=== PATIENT | male | born 1930 | race Caucasian/White ===

== ENCOUNTER 2016-11-07 17:54 | Inpatient (IN) | payer MEDICARE, BC ==
--- NOTE | ~2016-11-07 | CN ---
Consultation Report [facility] [address] [place]. [address] NAME: BETTINA CARTER : 31 STATUS : ADM IN PAT#: [id number] AGE: 86 ADM/REG DATE : 11/07/16 MR#: [id number] REPORT SERV DATE: 11/08/16 DICTATED BY: BRITTNI BARKER DATE: 11/07/16 REPORT STATUS : Draft TRANSCRIBED BY: MODL DATE: 11/07/16 NEPHROLOGY CONSULT DATE OF CONSULTATION: 11/07/2016 Thank you for this consult. Chart reviewed. Patient examined. REASON FOR CONSULTATION: Acute kidney injury status post cardiac catheterization. HISTORY OF PRESENT ILLNESS: Mr. Btetina Carter is an 86-year-old male, who just moved to the [facility] for [place]. He is someone who has not received any healthcare or had any blood work done for many many years. He does not take any medicines other than occasional Aleve at home for aches and pains. He has noticed for the past 3 weeks that he has had progressive shortness of breath with very minimal exertion. He has had increasing chest pain. Denies any nausea, vomiting, or diaphoresis. He denies any significant edema since he has been making urine fine. He has no knowledge of kidney failure but states he had nephrolithiasis when he was a young man and required some surgeries for that. The shortness of breath and chest pain kept getting worse and so he sought medical attention. He was found to have elevated troponin and was taken to the cardiac wood [facility] lab[facility], where he had diffuse coronary disease and needed CABG and also had a ventricular septal defect that will need a surgical repair. He, on his blood work, was found to have a creatinine of 3.9, a BUN of 124. Nephrology was asked to see him urgently tonight. He is awake, alert, and currently feels well and has no new complaints. PAST MEDICAL HISTORY: 1. No health care, and no blood work for many years. He just moved to the [facility] for [place]. 2. Nephrolithiasis as a young gentleman and was told that he had a small right kidney. 3. Previous surgeries for nephrolithiasis. 4. Occasional NSAIDs in the form of Aleve. ALLERGIES: NO KNOWN DRUG ALLERGIES. MEDICATIONS: None prescribed. SOCIAL HISTORY: He previously smoked. He drinks 1 glass of red wine each day. He previously was employed at the [employer]. FAMILY HISTORY: Mom of COPD. Dad of coronary disease. REVIEW OF SYSTEMS: All systems reviewed and are negative except what is mentioned in the history of present illness. PHYSICAL EXAMINATION: Consultation Report [facility] [address] [place]. [address] NAME: BETTINA CARTER : 31 STATUS : ADM IN PAT#: [id number] AGE: 86 ADM/REG DATE : 11/07/16 MR#: [id number] REPORT SERV DATE: 11/08/16 DICTATED BY: BRITTNI BARKER DATE: 11/07/16 REPORT STATUS : Draft TRANSCRIBED BY: MODTan DATE: 11/07/16 VITAL SIGNS: Blood pressure 114/58. He is afebrile. Pulse 94, respirations 24. GENERAL: He is chronically ill, in no acute distress. EYES: Pupils react bilaterally. No conjunctivitis. OROPHARYNX: Mucous membranes are moist. He has decent dentition. No lesions. NECK: Supple. No thyromegaly or mass. Trachea is midline. LYMPHADENOPATHY: No cervical, supraclavicular, or axillary lymphadenopathy. LUNGS: Decreased breath sounds at the bases. No tachypnea. CARDIOVASCULAR: Regular rate and rhythm with a 2/6 systolic ejection murmur. No rub. No significant edema. GASTROINTESTINAL: Positive bowel sounds. Soft, nontender, nondistended with no hepatosplenomegaly. SKIN: Decent skin turgor. No rash. PSYCHIATRIC: Alert and oriented x3. Speech is clear. Affect is normal. NEUROLOGICAL: Cranial II through XII intact. DIAGNOSTIC DATA: Chest x-ray reviewed by me shows bilateral pulmonary congestion, right side greater than left per my interpretation. EKG shows normal sinus rhythm with acute ST elevation in inferior leads consistent with acute FL per my interpretation. LABORATORY DATA: Sodium 133, potassium 3.7, chloride 96, bicarb 22, BUN 124, creatinine 3.9, glucose 120, calcium 8.3, total protein 6.9, albumin 2.6, direct bilirubin 0.2, indirect bilirubin 0.4. Alkaline phosphatase 223, ALT 355, AST 109, CPK 78. Troponin 4.1. TSH 1.9, free T4 of 1.5. Beta natriuretic peptide 1902. White count 12, hemoglobin 13, hematocrit 37, platelets 308. IMPRESSION: 1. Acute kidney injury in the setting of acute myocardial infarction, status post emergent cardiac catheterization. He was found to have diffuse coronary disease in need of CABG. He was also found to have a ventricular septal defect in need of surgical repair. 2. Pulmonary edema on chest x-ray. 3. No health care or lab work for many years. Just moved here for [place]. 4. Likely end-stage renal disease. He agrees to PermCath and hemodialysis. 5. NSAID use. PLAN AND RECOMMENDATION: 1. Check urinalysis and renal ultrasound. 2. KVO IV fluids. 3. Start IV Lasix. 4. Ask vascular surgery to place PermCath and will need hemodialysis. 5. Avoid NSAIDs. 6. No emergent need for hemodialysis tonight. All questions answered for the patient. He understands that he will likely need dialysis to live, and he wants everything done to help him live. Consultation Report [address] [place]. [address] NAME: BETTINA CARTER : 31 STATUS : ADM IN PAT#: [id number] AGE: 86 ADM/REG DATE : 11/07/16 MR#: [id number] REPORT SERV DATE: 11/08/16 DICTATED BY: BRITTNI BARKER DATE: 11/07/16 REPORT STATUS : Draft TRANSCRIBED BY: ALECIA DATE: 11/07/16 CLIFFORD/ALECIA Brittni Barker M.D. / [id number] CC: Rufino Stallings MD
--- NOTE | ~2016-11-07 | HP ---
History And Physical [facility] [id number] [facility] [place]. [address] NAME: BETTINA CARTER : 32 STATUS : ADM IN [facility]#: [id number] AGE: 86 ADM/REG DATE : 11/07/16 MR#: [id number] REPORT SERV DATE: 11/07/16 DICTATED BY: ALBA STALLINGS DATE: 11/07/16 REPORT STATUS : Draft TRANSCRIBED BY: MODL DATE: 11/07/16 DATE OF ADMISSION: 11/07/2016 CARDIOLOGY ADMISSION HISTORY AND PHYSICAL IDENTIFYING DATA: The patient is an 86-year-old man who has not seen a doctor in approximately 30 years, but who has no known history of cardiovascular disease. CHIEF COMPLAINT: Two-week history of chest pain with progressive generalized fatigue and dyspnea. HISTORY OF PRESENT ILLNESS: Mr. Carter is an 86-year-old man who denies any previous cardiovascular history or medical history with the exception of kidney stones. The patient was apparently in his usual state of health until approximately two weeks prior to admission. The patient did have the abrupt onset of a substernal chest tightness and burning associated with wheezing and dyspnea. The patient attributed his symptoms to seasonal allergies from recent high pollen counts. He did not immediately seek medical evaluation. Throughout the last two weeks, the patient has developed progressive generalized fatigue and exertional dyspnea. He has had waxing and waning chest pain. He reports that today, his fatigue, dyspnea, and chest pain became unremitting. He therefore presented to [facility]. A 12-lead ECG was suggestive of an involving inferior myocardial infarction, and the patient was transferred to [facility] for emergency cardiac catheterization with primary percutaneous coronary intervention as appropriate. PAST MEDICAL HISTORY: Significant for nephrolithiasis. Again, the patient has not seen a doctor in about 30 years. He denies any previous history of chronic kidney disease, diabetes, or hypertension. PAST SURGICAL HISTORY: The patient denies any major previous surgeries. FAMILY HISTORY: The patient denies a significant family history of early coronary heart disease or sudden cardiac . SOCIAL HISTORY: The patient reports that he has a distant history of cigarette smoking, but quit almost 50 years ago. He drinks one to two glasses of wine with dinner daily. He is . He denies any history of illicit drug use. ALLERGIES: THE PATIENT REPORTS NO KNOWN MEDICATION ALLERGIES. HOME MEDICATIONS: The patient reports he is on no doctor-prescribed medications. REVIEW OF SYSTEMS: An abbreviated 12-system review was performed. This is noncontributory except for the pertinent positives and negatives noted in the history of present illness above. History And Physical [address] [place]. [address] NAME: BETTINA CARTER : 32 STATUS : ADM IN PAT#: [id number] AGE: 86 ADM/REG DATE : 11/07/16 MR#: [id number] REPORT SERV DATE: 11/07/16 DICTATED BY: ALBA STALLINGS DATE: 11/07/16 REPORT STATUS : Draft TRANSCRIBED BY: ALECIA DATE: 11/07/16 PHYSICAL EXAMINATION: VITAL SIGNS: The patient is afebrile. Blood pressure is 101/55 mmHg, heart rate is approximately 85 beats per minute and regular, respirations 16, and oxygen saturation is 98% on a 2 L nasal cannula. CONSTITUTIONAL: The patient is an elderly white man who appears fatigued, but is in no acute distress. The patient appears younger than his stated age. EYES: PERRL, EOMI, clear conjunctiva. HEAD/MNT: NCAT with moist mucous membranes and grossly normal hard and soft palate. NECK: Supple with no obvious thyromegaly or lymphadenopathy CARDIOVASCULAR: There is a regular rhythm with a normal S1 and a physiologically split second heart sound. There is a grade 3/6 holosystolic murmur heard at the cardiac apex, but also throughout the precordium. This does not clearly radiate to the axilla. The jugular venous pressure is difficult to estimate, as the patient is lying flat on the catheterization table at the time of my examination. PULMONARY: Again, pulmonary exam is limited by patient position. However, the lungs are grossly clear to auscultation bilaterally with no wheezing, rales, rhonchi, or dullness to percussion noted at this time. ABDOMINAL: Soft, nontender, nondistended with no gross organomegaly noted. EXTREMITIES: No clubbing, cyanosis, or edema. The patient has a non-palpable right common femoral artery pulse. He has a 2+ left common femoral artery pulse. MUSCULOSKELETAL: Grossly normal strength and range of motion in all extremities INTEGUMENTARY: Skin appears intact with no bruises, wounds or active lesions noted NEURO/PSYC: Alert and oriented x3, with no dysarthria, facial droop or lateralizing weakness noted. 12-LEAD EKG: The 12-lead EKG shows sinus rhythm with first-degree AV block. There is [address]-segment elevation noted in leads II, III, and aVF. There is [address]-segment depression noted in lead V3. Frequent premature ventricular complexes are noted. There are Q-waves seen in leads II, III, and aVF. Overall, the findings are consistent with an evolving inferior myocardial infarction. LABORATORY: Partial labs from an outside hospital show mild leukocytosis, mild anemia, and renal function studies consistent with acute renal failure with a creatinine of 3.8 and a BUN of 141. CARDIAC CATHETERIZATION: Please see official report for details. In summary, the patient was found to have severe multivessel coronary artery disease. Left ventriculography was performed to evaluate the source of the patient's murmur. The patient has late filling of the pulmonary artery as well as what appears to be the right ventricular margin. The findings are suggestive of an ischemic ventricular septal defect. 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 ASSESSMENT AND PLAN: 1. Evolving inferior myocardial infarction with apparent ischemic ventricular septal defect: A stat transthoracic echocardiogram will be obtained to more accurately History And Physical [address] [address] NAME: BETTINA CARTER : 32 STATUS : ADM IN [facility]#: [id number] AGE: 86 ADM/REG DATE : 11/07/16 MR#: [id number] REPORT SERV DATE: 11/07/16 DICTATED BY: ALBA STALLINGS DATE: 11/07/16 REPORT STATUS : Draft TRANSCRIBED BY: MODL DATE: 11/07/16 characterize the nature of the patient's ventricular septal defect. I have discussed the case with Dr. Moo Torres. The patient remained hemodynamically stable at this time. If possible, surgery will be delayed so that repair of the patient's ischemic ventricular septal defect as well as multivessel coronary artery bypass surgery can be planned. At this time, the patient denies chest pain. He will continue aspirin. The patient will not be loaded with Plavix given the possibility of urgent surgery. 2. Acute renal failure: Repeat labs will be ordered to confirm acute renal failure. The Nephrology Service has been consulted. Should the patient require dialysis, CRRT may be necessary, as the patient is at high risk of becoming hemodynamically unstable on traditional hemodialysis. I have discussed the findings and the patient's relatively poor prognosis with his . The family has been updated. The patient will be transferred to the Cardiovascular Surgery ICU for close monitoring. JCH/MODL Alba Stallings MD / [id number] CC: Alba Stallings MD
[~2016-11-07 17:54] MED LIST: ALEVE220 MG PO; [UNRECOGNIZED DRUG - OTHER] PO
[2016-11-07 21:16] LABS: BASOPHILS 0.4 %; BASOPHILS ABSOLUTE 0.05 10/3/uL (0.0-0.16); EOSINOPHILS ABSOLUTE 0.12 10/3/uL (0.0-0.53); HEMATOCRIT 37.6 % (40.0-51.0); HEMOGLOBIN 13.1 g/dL (13.6-17.8); IMMATURE GRANULOCYTES 1.9 %; IMMATURE GRANULOCYTES ABSOLUTE 0.24 10/3/uL (0.0-0.11); LYMPHOCYTES 12.4 %; LYMPHOCYTES ABSOLUTE 1.55 10/3/uL (0.67-4.30); MANUAL DIFF NO %; MEAN CORPUS HGB CONC 34.8 g/dL (32.0-36.0); MEAN CORPUSCULAR VOLUME 91.7 fL (80-100); MONOCYTES 8.6 %; MONOCYTES ABSOLUTE 1.08 10/3/uL (0.21-1.20); NEUTROPHILS 75.7 %; NEUTROPHILS ABSOLUTE 9.48 10/3/uL (2.02-8.40); PLATELET COUNT 308 10/3/uL (150-400); RBC DISTRIBUTION WIDTH 13.9 % (12.0-16.0); WHITE BLOOD CELLS 12.5 10/3/uL (4.5-10.5)
[2016-11-07 21:37] LABS: A/G RATIO 0.6 (0.7-1.9); ALBUMIN 2.6 G/DL (3.5-5.0); ALKALINE PHOSPHATASE 223 U/L (45-117); BUN (BLOOD UREA NITROGEN) 124 MG/DL (6-23); CALCIUM, SERUM 8.3 MG/DL (8.5-10.4); CHLORIDE, SERUM 96 MMOL/L (96-112); CK-MB 7.2 NG/ML; CKMB INDEX (NOT ORD) 9.2; CO2 (CARBON DIOXIDE) 22 MMOL/L (24-34); CPK 78 U/L (0-200); CREATININE 3.92 MG/DL (0.70-1.30); DIRECT BILIRUBIN 0.2 MG/DL (0.0-0.4); FREE T4 1.51 NG/DL (0.76-1.46); GFR AFRICAN AMERICAN 15 ML/MIN (>=60); GFR NON AFRICAN AMERICAN 13 ML/MIN (>=60); GLOBULIN 4.3 G/DL (2.5-4.1); GLUCOSE, SERUM 120 MG/DL (60-99); INDIRECT BILIRUBIN(NOT ORDER) 0.4 MG/DL (0.1-0.9); POTASSIUM, SERUM 3.7 MMOL/L (3.5-5.3); SGOT(AST) 109 U/L (5-40); SGPT(ALT) 355 U/L (5-65); SODIUM, SERUM 133 MMOL/L (135-148); TOTAL BILIRUBIN 0.6 MG/DL (0-1.2); TOTAL PROTEIN 6.9 G/DL (6.0-8.5)
[2016-11-07 21:38] LABS: TROPONIN I 4.13 NG/ML (<0.05)
[2016-11-08 03:16] LABS: ASCORBIC ACID (UR NOT ORDER) NEG (NEG); BILIRUBIN, URINE NEGATIVE (NEG); KETONE, URINE NEGATIVE (NEG); LEUKOCYTE ESTERASE(NOT OR LARGE (NEG); WBC (NOT ORDERED) (RFLEX) > 182 (0-5)
[2016-11-08 04:04] LABS: BASOPHILS 0.4 %; BASOPHILS ABSOLUTE 0.04 10/3/uL (0.0-0.16); EOSINOPHILS 1.5 %; EOSINOPHILS ABSOLUTE 0.15 10/3/uL (0.0-0.53); HEMATOCRIT 34.7 % (40.0-51.0); HEMOGLOBIN 12.1 g/dL (13.6-17.8); IMMATURE GRANULOCYTES 2.8 %; IMMATURE GRANULOCYTES ABSOLUTE 0.28 10/3/uL (0.0-0.11); LYMPHOCYTES 11.4 %; LYMPHOCYTES ABSOLUTE 1.15 10/3/uL (0.67-4.30); MEAN CORPUS HGB CONC 34.9 g/dL (32.0-36.0); MEAN CORPUSCULAR VOLUME 91.8 fL (80-100); MEAN PLATELET VOLUME 10.7 fL (9.2-13.0); MONOCYTES ABSOLUTE 1.32 10/3/uL (0.21-1.20); NEUTROPHILS 70.9 %; NEUTROPHILS ABSOLUTE 7.18 10/3/uL (2.02-8.40); PLATELET COUNT 307 10/3/uL (150-400); RBC DISTRIBUTION WIDTH 13.9 % (12.0-16.0); RED CELL COUNT 3.78 10/6/uL (4.7-6.1); WHITE BLOOD CELLS 10.1 10/3/uL (4.5-10.5)
[2016-11-08 04:05] LABS: MANUAL DIFF NO %
[2016-11-08 04:11] LABS: INTERNATIONAL NORMAL RATI 1.4 UNITS (-); PROTIME (NOT ORD) 16.7 SEC (12.0-14.5)
[2016-11-08 04:19] LABS: ALBUMIN 2.4 G/DL (3.5-5.0); CALCIUM, SERUM 8.1 MG/DL (8.5-10.4); CHLORIDE, SERUM 103 MMOL/L (96-112); CO2 (CARBON DIOXIDE) 22 MMOL/L (24-34); CREATININE 3.64 MG/DL (0.70-1.30); GFR AFRICAN AMERICAN 17 ML/MIN (>=60); GFR NON AFRICAN AMERICAN 14 ML/MIN (>=60); GLUCOSE, SERUM 137 MG/DL (60-99); PHOSPHORUS, SERUM 4.7 MG/DL (2.5-4.5); POTASSIUM, SERUM 4.1 MMOL/L (3.5-5.3); SODIUM, SERUM 138 MMOL/L (135-148)
[2016-11-08 04:20] LABS: BUN (BLOOD UREA NITROGEN) 119 MG/DL (6-23)
[2016-11-08 06:49] LABS: INTACT PTH (ICMA) 206.1 PG/ML (10.0-65.0)
== END 2016-11-08 19:36 | disposition hospice, home (50) | DRG 280 ==
LOC: SSU2 17:54 → CVICU 19:25
PROVIDERS: Internal Medicine Cardiovascular Disease; Internal Medicine Nephrology
PROC: 4A023N7 Measurement of Cardiac Sampling and Pressure, Left Heart, Percutaneous Approach (ICD-10-PCS; principal; 2016-11-07)
PROC: B2111ZZ Fluoroscopy of Multiple Coronary Arteries using Low Osmolar Contrast (ICD-10-PCS; 2016-11-07)
PROC: B2151ZZ Fluoroscopy of Left Heart using Low Osmolar Contrast (ICD-10-PCS; 2016-11-07)
DX: I21.19 ST elevation (STEMI) myocardial infarction involving other coronary artery of inferior wall (principal); N18.6 End stage renal disease; N17.9 Acute kidney failure, unspecified; N39.0 Urinary tract infection, site not specified; N13.30 Unspecified hydronephrosis; I23.2 Ventricular septal defect as current complication following acute myocardial infarction; Z51.5 Encounter for palliative care; Z66 Do not resuscitate; Z87.442 Personal history of urinary calculi; I44.0 Atrioventricular block, first degree; Z87.891 Personal history of nicotine dependence
CPT/HCPCS: 36415; 71010; 76775; 80048; 80053; 80069; 81001; 82248; 82550; 82553; 83735; 83880; 83970; 84439; 84443; 84484; 85025; 85347; 85610; 85730; 86850; 86900; 86901; 87077; 87086; 87186; 87641; 93005; 93306; 93458; 99152; 99153; 99285; A9270-GY; C1769; C1894; C8929; J2250; J3010; Q9957; Q9967